=== PATIENT | male | born 2000 | race Caucasian/White ===

== ENCOUNTER → 2021-05-07 | Outpatient (CLI) | payer BC ==
--- NOTE | 2021-05-07 17:01 | Diagnostic Imaging Report ---
Indication: Shortness of breath PA and lateral chest Heart size and pulmonary vascularity are normal. Lungs are clear. There are no effusions or pneumothoraces. IMPRESSION: Negative chest Dictated by: Dictated on workstation # [id number]
[2021-05-07 17:06] LABS: HEMATOCRIT 47 % (40-54); HEMOGLOBIN 15.6 g/dL (13.3-17.7); MEAN CORPUSCULAR HEMOGLOBIN 30 pg (25-34); MEAN CORPUSCULAR HGB CONC 34 g/dL (32-36); MEAN CORPUSCULAR VOLUME 90 fL (80-99); MEAN PLATELET VOLUME 10.8 fL (9.0-12.2); PLATELET COUNT 208 10^3/uL (130-400); WHITE BLOOD COUNT 5.8 10^3/uL (4.3-11.0)
[2021-05-07 17:07] LABS: ALBUMIN 4.8 GM/DL (3.2-4.5); CHLORIDE 104 MMOL/L (98-107); POTASSIUM 3.7 MMOL/L (3.6-5.0); SODIUM 140 MMOL/L (135-145)
[2021-05-07 17:08] LABS: CALCIUM 9.8 MG/DL (8.5-10.1)
[2021-05-07 17:09] LABS: GLUCOSE 128 MG/DL (70-105); TOTAL PROTEIN 7.4 GM/DL (6.4-8.2)
[2021-05-07 17:10] LABS: CARBON DIOXIDE 26 MMOL/L (21-32)
[2021-05-07 17:11] LABS: BILIRUBIN,TOTAL 0.9 MG/DL (0.1-1.0)
[2021-05-07 17:13] LABS: ALKALINE PHOSPHATASE 59 U/L (40-136); CREATININE SERUM 0.94 MG/DL (0.60-1.30); GFR ESTIMATED > 60
[2021-05-07 17:14] LABS: BUN/CREATININE RATIO 12
[2021-05-07 17:16] LABS: ALANINE AMINOTRANSFERASE 15 U/L (0-55)
== END ==
LOC: CARD 16:45
PROVIDERS: ATTEND Pediatrics
DX: R06.02 Shortness of breath (principal); R06.00 Dyspnea, unspecified
CPT/HCPCS: 36415; 71046; 80053; 84443; 84484; 85027; 93005